=== PATIENT | female | born 1970 | race Caucasian/White ===

== ENCOUNTER 2020-03-16 01:28 | Emergency (ER) | payer MEDICAID ==
[~2020-03-16] VITALS: Ht 170.2 cm; Wt 127.3 kg
[2020-03-16 01:32] VITALS: BP 143/97
[2020-03-16] MEDS ORDERED: HYDR-3965 PO (01:39)
[2020-03-16] MEDS ORDERED: ONDA4TAB6 PO (01:39)
[2020-03-16] MEDS ORDERED: HYDROcodone/acetaminophen 5mg/325mg tablet PO ONE (01:40)
[2020-03-16] MEDS ORDERED: ondansetron 4mg rapidly disintigrating tab PO ONE (01:40)
== END 2020-03-16 03:12 | disposition home or self-care (01) ==
LOC: ER 01:29
DX: R60.0 Localized edema (principal); M79.605 Pain in left leg; M79.604 Pain in right leg; Z79.899 Other long term (current) drug therapy
CPT/HCPCS: 99283

== ENCOUNTER 2020-04-16 05:31 | Emergency (ER) | payer MEDICAID ==
[~2020-04-16 05:31] MED LIST: HYDR-3965 PO; ONDA4TAB6 PO
[2020-04-16] MEDS ORDERED: normal saline 1000ML IV soln IV ONE (05:45)
[2020-04-16] MEDS ORDERED: normal saline 1000ML IV soln IVB ONE (06:00)
[2020-04-16 06:13] LABS: BASOPHILS # (AUTO) 0.1 X10'3 (0-0.2); BASOPHILS % (AUTO) 1.2 % (0-1); EOSINOPHILS # (AUTO) 0.1 X10'3 (0-0.9); EOSINOPHILS % (AUTO) 1.5 % (0-6); HEMATOCRIT 37.7 % (35.0-45.0); HEMOGLOBIN 12.6 g/dl (12.0-16.0); LYMPHOCYTES # (AUTO) 3.4 X10'3 (1.1-4.8); LYMPHOCYTES % (AUTO) 35.6 % (21-51); MEAN CORPUSCULAR HEMOGLOBIN 28.7 PG (27.0-31.0); MEAN CORPUSCULAR HGB CONC 33.5 g/dL (33.0-36.5); MEAN CORPUSCULAR VOLUME 85.6 FL (78-98); MEAN PLATELET VOLUME 9.2 FL (7.4-10.4); MONOCYTES # (AUTO) 0.5 X10'3 (0-0.9); MONOCYTES % (AUTO) 5.5 % (2-12); NEUTROPHILS # (AUTO) 5.3 X10'3 (1.8-7.7); NEUTROPHILS % (AUTO) 56.2 % (42-75); PLATELET COUNT 365 X10'3 (140-440); RED CELL DISTRIBUTION WIDTH 14.1 % (11.5-14.5); WHITE BLOOD COUNT 9.5 X10'3 (4.5-11.0)
[2020-04-16 06:23] LABS: PARTIAL THROMBOPLASTIN TIME 23 SECONDS (22-32)
[2020-04-16 06:24] LABS: ALANINE AMINOTRANSFERASE 35 U/L (12-78); ALBUMIN 4.1 G/DL (3.4-5.0); ALBUMIN/GLOBULIN RATIO 0.9 (1.1-1.5); ALKALINE PHOSPHATASE 136 IU/L (46-116); ANION GAP 11 (8-16); ASPARTATE AMINO TRANSFERASE 18 U/L (10-37); BILIRUBIN,TOTAL 0.2 MG/DL (0.1-1.0); BLOOD UREA NITROGEN 13 MG/DL (7-18); BUN/CREATININE RATIO 14.4 (6.6-38.0); CALCIUM 9.7 MG/DL (8.5-10.1); CHLORIDE 102 MMOL/L (99-107); GLUCOSE 151 MG/DL (70-104); POTASSIUM 3.3 MMOL/L (3.5-5.1); SODIUM 137 MMOL/L (135-145); TOTAL CARBON DIOXIDE 23.8 MMOL/L (24-32); TOTAL PROTEIN 8.8 G/DL (6.4-8.2); eGFR 67 ML/MIN
[2020-04-16 06:40] LABS: URINE HCG NEGATIVE (NEG)
[2020-04-16 06:46] LABS: CLARITY,URINE CLEAR (Clear); COLOR,URINE STRAW (Yellow); GLUCOSE, URINE NEGATIVE (Neg); KETONES,URINE NEGATIVE (Neg); LEUKOCYTE ESTERASE ,URINE NEGATIVE (Neg); NITRITES, URINE NEGATIVE (Neg); OCCULT BLOOD,URINE LARGE (Neg); PROTEIN,URINE NEGATIVE (Neg); UROBILINOGEN,URINE 0.2 E.U/dL (0.2-1.0)
[2020-04-16 06:50] LABS: UA COLLECTION TYPE CLN CATCH MIDSTREAM
[2020-04-16 06:53] LABS: BACTERIA,URINE NONE SEEN /HPF (Neg); RBC,URINE 0-2 /HPF (0-2); SQUAMOUS EPITHELIAL CELL,UR NONE SEEN /LPF (FEW); WBC,URINE NONE SEEN /HPF (0-4)
[2020-04-16] MEDS ORDERED: potassium Cl 20 mEq SR tablet PO ONE (09:05)
[2020-04-16 10:03] VITALS: BP 121/77
== END 2020-04-16 10:05 | disposition home or self-care (01) ==
LOC: ER 05:31
DX: K62.5 Hemorrhage of anus and rectum (principal); R60.0 Localized edema; R10.84 Generalized abdominal pain; R53.1 Weakness; R53.83 Other fatigue; Z86.73 Personal history of transient ischemic attack (TIA), and cerebral infarction without residual deficits; Z88.0 Allergy status to penicillin; Z88.5 Allergy status to narcotic agent; Z79.899 Other long term (current) drug therapy
CPT/HCPCS: 36415; 74176; 80053; 81001; 81025; 82948; 85025; 85610; 85730; 86885; 86900; 86901; 93005; 96360; 96361; 99285; J7030

== ENCOUNTER 2024-06-05 23:06 | Emergency (ER) | payer MEDICAID ==
[~2024-06-05] VITALS: Ht 170.2 cm; Wt 104.9 kg
[~2024-06-05 23:06] MED LIST changes: -HYDR-3965 PO
[2024-06-05] MEDS ORDERED: naproxen sodium 220mg tablet PO STA (23:35)
[2024-06-06] MEDS: naproxen 500mg tablet PO ONE
[2024-06-06 00:01] VITALS: BP 122/80; PULSE 92; RESP 18; TEMP 98.6; O2SAT 99
== END 2024-06-06 00:04 | disposition home or self-care (01) ==
LOC: ER 23:06
DX: M79.601 Pain in right arm (principal); Z88.0 Allergy status to penicillin; Z88.5 Allergy status to narcotic agent; Z86.73 Personal history of transient ischemic attack (TIA), and cerebral infarction without residual deficits; Z79.899 Other long term (current) drug therapy
CPT/HCPCS: 99282

== ENCOUNTER 2024-06-12 22:22 | Inpatient (IN) | payer MEDICAID ==
[~2024-06-12] VITALS: Ht 170.2 cm; Wt 150.0 kg
[2024-06-12] MEDS: aspirin 81mg tab.chew PO ONE (23:35)
[2024-06-12 23:47] LABS: D-DIMER 0.58 MG/L FEU (0-0.50)
[2024-06-12 23:49] LABS: BASOPHILS # (AUTO) 0.1 X10'3 (0-0.2); EOSINOPHILS # (AUTO) 0.1 X10'3 (0-0.9); HEMATOCRIT 39.5 % (35.0-45.0); HEMOGLOBIN 13.3 g/dl (12.0-16.0); LYMPHOCYTES # (AUTO) 3.1 X10'3 (1.1-4.8); LYMPHOCYTES % (AUTO) 31.8 % (21-51); MEAN CORPUSCULAR HEMOGLOBIN 30.3 PG (27.0-31.0); MEAN CORPUSCULAR HGB CONC 33.7 g/dL (33.0-36.5); MEAN CORPUSCULAR VOLUME 89.9 FL (78-98); MEAN PLATELET VOLUME 10.5 FL (7.4-10.4); MONOCYTES # (AUTO) 0.5 X10'3 (0-0.9); MONOCYTES % (AUTO) 5.4 % (2-12); NEUTROPHILS % (AUTO) 60.8 % (42-75); PLATELET COUNT 252 X10'3 (140-440); RED BLOOD COUNT 4.39 X10'6 (4.20-5.60); RED CELL DISTRIBUTION WIDTH 13.8 % (11.5-14.5); WHITE BLOOD COUNT 9.8 X10'3 (4.5-11.0)
[2024-06-12 23:50] LABS: ALANINE AMINOTRANSFERASE 38 U/L (12-78); ALBUMIN 3.8 G/DL (3.4-5.0); ALBUMIN/GLOBULIN RATIO 0.9 (1.1-1.5); ALKALINE PHOSPHATASE 125 IU/L (46-116); ANION GAP 14 (8-16); ASPARTATE AMINO TRANSFERASE 18 U/L (10-37); BILIRUBIN,TOTAL 0.4 MG/DL (0.1-1.0); BLOOD UREA NITROGEN 14 MG/DL (7-18); BUN/CREATININE RATIO 21.2 (10.0-20.0); CALCIUM 9.4 MG/DL (8.5-10.1); CHLORIDE 104 MMOL/L (99-107); CREATININE 0.66 MG/DL (0.40-0.90); GLUCOSE 273 MG/DL (70-104); POTASSIUM 4.3 MMOL/L (3.5-5.1); SODIUM 141 MMOL/L (135-145); TOTAL CARBON DIOXIDE 23.1 MMOL/L (24-32); TOTAL PROTEIN 7.9 G/DL (6.4-8.2); eCRCL 97 ML/MIN; eGFR > 90 ML/MIN
[2024-06-12 23:52] LABS: APTT 23 SECONDS (22-32); PROTHROMBIN TIME 10.2 SECONDS (9.0-12.0)
[2024-06-12 23:56] LABS: MAGNESIUM 1.9 MG/DL (1.5-2.4); PRO BRAIN NATRIURETIC PEPTIDE 340 PG/ML (0-125)
[2024-06-13] VITALS (10 sets, daily range): BP systolic 108–131; BP diastolic 77–86; PULSE 90–108; RESP 14–16; TEMP 98.2; O2SAT 96–100
[2024-06-13 00:59] LABS: BILIRUBIN,URINE NEGATIVE (Neg); CLARITY,URINE CLEAR (Clear); COLOR,URINE YELLOW (Yellow); GLUCOSE, URINE >=1000 mg/dl (Neg); KETONES,URINE 40 mg/dl (Neg); LEUKOCYTE ESTERASE ,URINE NEGATIVE (Neg); NITRITES, URINE NEGATIVE (Neg); OCCULT BLOOD,URINE NEGATIVE (Neg); PROTEIN,URINE NEGATIVE (Neg); UROBILINOGEN,URINE 0.2 E.U/dL (0.2-1.0)
[2024-06-13 01:02] LABS: UA COLLECTION TYPE CLN CATCH MIDSTREAM
[2024-06-13 01:05] LABS: BACTERIA,URINE 1+ /HPF (Neg); RBC,URINE NONE SEEN /HPF (0-2); SQUAMOUS EPITHELIAL CELL,UR FEW /LPF (FEW); WBC,URINE 0-4 /HPF (0-4)
[2024-06-13] MEDS ORDERED: iohexol 350MG/ML 100ml bottle IV ONE (01:17)
[2024-06-13] MEDS: normal saline 1000ml 1,000 ML IV ONE (01:32)
[2024-06-13] MEDS ORDERED: magnesium hydroxide 30ml (MOM) UD suspension PO PRN (04:30)
[2024-06-13] MEDS ORDERED: potassium Cl 20 mEq SR tablet PO PRN ×2 (04:30)
[2024-06-13] MEDS ORDERED: potassium Cl 40MEQ/1/2NS 520ml 520 ML IV PRN (04:30)
[2024-06-13] MEDS ORDERED: magnesium sulf-water 4G/100mL 100 ML IV PRN (04:30)
[2024-06-13] MEDS ORDERED: magnesium sulf-water 2g/50mL 50 ML IV PRN (04:30)
[2024-06-13] MEDS ORDERED: mag hydrox/Alum hydrox/simeth 30ml oral suspension PO PRN (04:30)
[2024-06-13] MEDS ORDERED: acetaminophen 325mg tablet PO PRN (04:30)
[2024-06-13] MEDS ORDERED: ondansetron/PF 4mg/2ml inj IV PRN (04:30)
[2024-06-13] MEDS ORDERED: magnesium Cl slow-release 64mg tablet PO PRN (04:30)
[2024-06-13] MEDS ORDERED: nitroGLYCERIN 0.4mg SUBLingual tab SL PRN ×2 (05:15→05:20)
[2024-06-13] MEDS ORDERED: dextrose 50%-water 50ml dispensing syringe IV PRN ×4 (05:20→12:15)
[2024-06-13] MEDS ORDERED: DEXTROSE 15 GM of carb/4 tabs (each vial/BOTTLE has 4 tablets) PO PRN ×4 (05:20→12:15)
[2024-06-13] MEDS ORDERED: aminophylline 250mg/10ml inj. IV PRN (05:20)
[2024-06-13] MEDS ORDERED: metoprolol tartrate 1mg/ml inj IV PRN (05:20)
[2024-06-13] MEDS ORDERED: glucagon, human recombinant 1mg kit SUBCUT PRN ×2 (05:20→12:15)
[2024-06-13] MEDS: normal saline 1000ml 1,000 ML IV SCH (05:21)
[2024-06-13] MEDS: INSULIN LISPRO 100 UNIT/ML INSULN.PEN MULTI-DOSE SQ SCH (06:50)
[2024-06-13] MEDS: atorvastatin 20mg tablet PO SCH (07:55)
[2024-06-13] MEDS: K and/or MAG REPLACEMENT MC SCH (07:55)
[2024-06-13] MEDS: aspirin 81mg, enteric-coated 1 TAB TABLET.DR PO SCH (07:55)
[2024-06-13] MEDS: docusate sod 100mg capsule PO SCH (07:55)
[2024-06-13] MEDS: furosemide 10 MG/1 ML 10ml inj IV SCH (07:55)
[2024-06-13] MEDS: carvedilol 6.25mg tablet PO SCH (07:55)
[2024-06-13] MEDS: heparin, porcine 5000 units/ml vial SQ SCH (07:56)
[2024-06-13 08:10] LABS: CHOL/HDL RATIO 4.5 (0.00-4.99); CHOLESTEROL 147 MG/DL (0-200); HDL CHOLESTEROL 33 MG/DL (35-60); LDL CHOLESTEROL 83 MG/DL (50-100); MAGNESIUM 1.8 MG/DL (1.5-2.4); TRIGLYCERIDES 216 MG/DL (20-135)
[2024-06-13] MEDS: regadenoson 0.4mg/5ml syringe IV PRN (09:26)
[2024-06-13 11:02] LABS: HEMOGLOBIN A1C 10.7 % (4.5-6.2)
[2024-06-13] MEDS ORDERED: furosemide 20 MG/2 ML vial IV SCH (12:24)
[2024-06-13] MEDS ORDERED: FURO20TA4 PO (13:13)
[2024-06-13] MEDS ORDERED: EMPA10TA PO (13:13)
[2024-06-13] MEDS ORDERED: ATOR-2 PO (13:14)
[2024-06-13] MEDS ORDERED: CARV-50 PO (13:14)
[2024-06-13] MEDS ORDERED: ASPI-1397 PO (13:14)
[2024-06-13] MEDS ORDERED: CLOP75TA34 PO (13:14)
[2024-06-13] MEDS ORDERED: SPIR25TA5 PO (13:14)
[2024-06-13] MEDS ORDERED: SITA100T15 PO (13:14)
[2024-06-13] MEDS ORDERED: ALBU10.7 PO (13:14)
[2024-06-13] MEDS ORDERED: LANTUS SQ (13:14)
[2024-06-13] MEDS ORDERED: LISI20TA28 PO (13:14)
[2024-06-13] MEDS ORDERED: DULA0.75 SQ (13:14)
[2024-06-13] MEDS ORDERED: INSULIN LISPRO 100 UNIT/ML INSULN.PEN MULTI-DOSE SQ SCH (17:00)
[2024-06-13] MEDS ORDERED: insulin glargine (Lantus) pen - multi-dose SQ SCH ×2 (21:00)
== END 2024-06-13 17:31 | disposition home or self-care (01) | DRG 194 ==
LOC: ER 22:23 → ED HOLD 06-13 04:29
PROVIDERS: ADMIT Internal Medicine Critical Care Medicine; ATTEND Family Medicine
PROC: 4A02XM4 Measurement of Cardiac Total Activity, External Approach (ICD-10-PCS; principal; 2024-06-13)
PROC: 3E033HZ Introduction of Radioactive Substance into Peripheral Vein, Percutaneous Approach (ICD-10-PCS; 2024-06-13)
PROC: B32T1ZZ Computerized Tomography (CT Scan) of Left Pulmonary Artery using Low Osmolar Contrast (ICD-10-PCS; 2024-06-13)
PROC: B3201ZZ Computerized Tomography (CT Scan) of Thoracic Aorta using Low Osmolar Contrast (ICD-10-PCS; 2024-06-13)
PROC: B32S1ZZ Computerized Tomography (CT Scan) of Right Pulmonary Artery using Low Osmolar Contrast (ICD-10-PCS; 2024-06-13)
DX: I11.0 Hypertensive heart disease with heart failure (principal); I21.A1 Myocardial infarction type 2; I50.21 Acute systolic (congestive) heart failure; J45.909 Unspecified asthma, uncomplicated; I69.351 Hemiplegia and hemiparesis following cerebral infarction affecting right dominant side; Z88.0 Allergy status to penicillin; Z88.5 Allergy status to narcotic agent
CPT/HCPCS: 36415; 71045; 71275; 73521; 78452; 80053; 80061; 81001; 82948; 83036; 83605; 83735; 83880; 84132; 84145; 84484; 85025; 85379; 85610; 85730; 87040; 87502; 87503; 93005; 93017; 93306; 97161; 97530; 99285; A9500; G0378; J1815; J1940; J2785; J7030; Q9967

== ENCOUNTER 2024-08-05 00:04 | Inpatient (IN) | payer MEDICAID ==
[2024-08-05] VITALS (7 sets, daily range): BP systolic 80–120; BP diastolic 45–70; PULSE 75–106; RESP 12–23; TEMP 97–98.2; O2SAT 95–98
[~2024-08-05] VITALS: Ht 170.2 cm; Wt 109.0 kg
[~2024-08-05 00:04] MED LIST changes: +ALBU10.7 PO; +ASPI-1397 PO; +ATOR-2 PO; +CARV-50 PO; +CLOP75TA34 PO; +DULA0.75 SQ; +EMPA10TA PO; +FURO20TA4 PO; +LANTUS SQ; +LISI20TA28 PO; +SITA100T15 PO; +SPIR25TA5 PO
[2024-08-05 01:45] LABS: BASOPHILS # (AUTO) 0.1 X10'3 (0-0.2); BASOPHILS % (AUTO) 0.7 % (0-1); EOSINOPHILS # (AUTO) 0.2 X10'3 (0-0.9); EOSINOPHILS % (AUTO) 2.7 % (0-6); HEMATOCRIT 31.8 % (35.0-45.0); HEMOGLOBIN 10.6 g/dl (12.0-16.0); LYMPHOCYTES % (AUTO) 36.3 % (21-51); MEAN CORPUSCULAR HEMOGLOBIN 27.8 PG (27.0-31.0); MEAN CORPUSCULAR HGB CONC 33.3 g/dL (33.0-36.5); MEAN CORPUSCULAR VOLUME 83.5 FL (78-98); MONOCYTES # (AUTO) 0.5 X10'3 (0-0.9); MONOCYTES % (AUTO) 5.9 % (2-12); NEUTROPHILS # (AUTO) 4.6 X10'3 (1.8-7.7); NEUTROPHILS % (AUTO) 54.4 % (42-75); PLATELET COUNT 282 X10'3 (140-440); RED BLOOD COUNT 3.81 X10'6 (4.20-5.60); RED CELL DISTRIBUTION WIDTH 14.7 % (11.5-14.5); WHITE BLOOD COUNT 8.4 X10'3 (4.5-11.0)
[2024-08-05 01:59] LABS: ALBUMIN 3.2 G/DL (3.4-5.0); ANION GAP 11 (8-16); BLOOD UREA NITROGEN 15 MG/DL (7-18); BUN/CREATININE RATIO 30.6 (10.0-20.0); CALCIUM 8.5 MG/DL (8.5-10.1); CHLORIDE 107 MMOL/L (99-107); CREATININE 0.49 MG/DL (0.40-0.90); GLUCOSE 163 MG/DL (70-104); POTASSIUM 3.9 MMOL/L (3.5-5.1); PRO BRAIN NATRIURETIC PEPTIDE 230 PG/ML (0-125); SODIUM 142 MMOL/L (135-145); eCRCL 131 ML/MIN; eGFR > 90 ML/MIN
[2024-08-05] MEDS: diazepam inj 5 MG/ML inj. IV ONE (02:38)
[2024-08-05] MEDS: oxyCODONE IR 5mg (immed. release) tablet PO ONE (04:57)
[2024-08-05] MEDS ORDERED: heparin 10,000 units/1 ML INJ IV PRN (05:05)
[2024-08-05] MEDS: heparin 10,000 units/1 ML INJ IV ONE (05:24)
[2024-08-05] MEDS: heparin 25,000 UNIT/250ml bag 250 ML IV PRN (05:25)
[2024-08-05] MEDS: aspirin 81mg tab.chew PO ONE (05:25)
[2024-08-05] MEDS: MESSAGE TO NURSING IV ONE (05:29)
[2024-08-05] MEDS ORDERED: magnesium hydroxide 30ml (MOM) UD suspension PO PRN (05:30)
[2024-08-05] MEDS ORDERED: potassium Cl 40MEQ/1/2NS 520ml 520 ML IV PRN (05:30)
[2024-08-05] MEDS ORDERED: acetaminophen 325mg tablet PO PRN (05:30)
[2024-08-05] MEDS ORDERED: magnesium sulf-water 4G/100mL 100 ML IV PRN (05:30)
[2024-08-05] MEDS ORDERED: magnesium sulf-water 2g/50mL 50 ML IV PRN (05:30)
[2024-08-05] MEDS ORDERED: potassium Cl 20 mEq SR tablet PO PRN ×2 (05:30)
[2024-08-05] MEDS ORDERED: mag hydrox/Alum hydrox/simeth 30ml oral suspension PO PRN (05:30)
[2024-08-05] MEDS ORDERED: magnesium Cl slow-release 64mg tablet PO PRN (05:30)
[2024-08-05] MEDS: DULAGLUTIDE 0.75 MG/0.5 ML SQ SCH (05:35)
[2024-08-05] MEDS ORDERED: albuterol 2.5 MG/3 ML nebule NEB PRN (05:35)
[2024-08-05 06:10] LABS: APTT 46 SECONDS (22-32); INR 1.1 INR; PROTHROMBIN TIME 10.9 SECONDS (9.0-12.0)
[2024-08-05] MEDS: vancomycin/NS 1 GM ADD-VANTAGE 250 ML IV SCH (06:19)
[2024-08-05 06:56] LABS: MAGNESIUM 1.9 MG/DL (1.5-2.4); POTASSIUM 3.9 MMOL/L (3.5-5.1)
[2024-08-05] MEDS: K and/or MAG REPLACEMENT MC SCH (08:00)
[2024-08-05] MEDS: aspirin 81mg, enteric-coated 1 TAB TABLET.DR PO SCH (09:48)
[2024-08-05] MEDS: docusate sod 100mg capsule PO SCH (09:49)
[2024-08-05] MEDS: furosemide 20MG tablet PO SCH (09:49)
[2024-08-05] MEDS: atorvastatin 20mg tablet PO SCH (09:49)
[2024-08-05] MEDS: lisinopril 20mg tablet PO SCH (09:50)
[2024-08-05] MEDS: clopidogrel 75mg tablet PO SCH (09:50)
[2024-08-05] MEDS: EMPAGLIFLOZIN 10 MG TABLET PO SCH (09:51)
[2024-08-05] MEDS: carVEDilol 12.5mg tablet PO SCH (09:51)
[2024-08-05] MEDS: ondansetron/PF 4mg/2ml inj IV PRN (11:54)
[2024-08-05] MEDS ORDERED: DEXTROSE 15 GM of carb/4 tabs (each vial/BOTTLE has 4 tablets) PO PRN ×2 (12:30)
[2024-08-05] MEDS ORDERED: dextrose 50%-water 50ml dispensing syringe IV PRN ×2 (12:30)
[2024-08-05] MEDS ORDERED: glucagon, human recombinant 1mg kit SUBCUT PRN (12:30)
[2024-08-05 12:49] LABS: HEMOGLOBIN A1C 7.8 % (4.5-6.2)
[2024-08-05 12:57] LABS: THYROID STIMULATING HORMONE 3.19 ulU/ml (0.34-4.50)
[2024-08-05] MEDS: spironolactone 25 MG tablet PO SCH (14:16)
[2024-08-05] MEDS: oxyCODONE/APAP 5-325mg tablet PO PRN (14:20)
[2024-08-05] MEDS: INSULIN LISPRO 100 UNIT/ML INSULN.PEN MULTI-DOSE SQ SCH (17:46)
[2024-08-05] MEDS: lactobacillus rhamnosus 10,000 MMU CELLS/CAPSULE PO SCH (20:37)
[2024-08-05] MEDS: heparin, porcine 5000 units/ml vial SQ SCH (20:38)
[2024-08-05] MEDS: insulin glargine (Lantus) pen - multi-dose SQ SCH (20:50)
[2024-08-06 02:00] VITALS: BP 94/52; PULSE 93; RESP 16; TEMP 97.7; O2SAT 95
[2024-08-06] MEDS: VANCOMYCIN LEVEL IV ONE (06:23)
[2024-08-06 07:00] VITALS: BP 124/79; PULSE 93; RESP 13; TEMP 97.6; O2SAT 98
[2024-08-06] MEDS: LIDOcaine 5% patch TP SCH (07:17)
[2024-08-06 07:43] LABS: ALANINE AMINOTRANSFERASE 22 U/L (12-78); ALBUMIN 2.9 G/DL (3.4-5.0); ALBUMIN/GLOBULIN RATIO 0.7 (1.1-1.5); ALKALINE PHOSPHATASE 132 IU/L (46-116); ANION GAP 10 (8-16); ASPARTATE AMINO TRANSFERASE 12 U/L (10-37); BILIRUBIN,TOTAL 0.4 MG/DL (0.1-1.0); BLOOD UREA NITROGEN 12 MG/DL (7-18); BUN/CREATININE RATIO 22.6 (10.0-20.0); CALCIUM 8.6 MG/DL (8.5-10.1); CHLORIDE 106 MMOL/L (99-107); CREATININE 0.53 MG/DL (0.40-0.90); GLUCOSE 165 MG/DL (70-104); MAGNESIUM 1.9 MG/DL (1.5-2.4); SODIUM 138 MMOL/L (135-145); TOTAL CARBON DIOXIDE 21.7 MMOL/L (24-32); TOTAL PROTEIN 6.8 G/DL (6.4-8.2); eCRCL 121 ML/MIN; eGFR > 90 ML/MIN
[2024-08-06 08:12] LABS: BASOPHILS # (AUTO) 0.1 X10'3 (0-0.2); BASOPHILS % (AUTO) 0.8 % (0-1); EOSINOPHILS # (AUTO) 0.2 X10'3 (0-0.9); HEMATOCRIT 33.7 % (35.0-45.0); HEMOGLOBIN 10.9 g/dl (12.0-16.0); LYMPHOCYTES # (AUTO) 2.6 X10'3 (1.1-4.8); LYMPHOCYTES % (AUTO) 32.8 % (21-51); MEAN CORPUSCULAR HEMOGLOBIN 27.2 PG (27.0-31.0); MEAN CORPUSCULAR HGB CONC 32.3 g/dL (33.0-36.5); MEAN CORPUSCULAR VOLUME 84.1 FL (78-98); MEAN PLATELET VOLUME 8.4 FL (7.4-10.4); MONOCYTES # (AUTO) 0.4 X10'3 (0-0.9); MONOCYTES % (AUTO) 5.6 % (2-12); NEUTROPHILS # (AUTO) 4.7 X10'3 (1.8-7.7); NEUTROPHILS % (AUTO) 58.8 % (42-75); PLATELET COUNT 303 X10'3 (140-440); RED BLOOD COUNT 4.01 X10'6 (4.20-5.60); RED CELL DISTRIBUTION WIDTH 14.8 % (11.5-14.5)
[2024-08-06 11:13] VITALS: BP 102/53; PULSE 93; RESP 15; TEMP 97.8; O2SAT 98
[2024-08-06] MEDS ORDERED: VANCOMYCIN/WATER FOR INJ (PEG) 1.5GM/300 ML IVPB IV SCH (14:00)
[2024-08-06] MEDS: VANCOmycin 1250MG/NS 250ml Bag 250 ML IV SCH (14:00)
[2024-08-06 14:32] VITALS: RESP 16
[2024-08-07] MEDS ORDERED: VANCOMYCIN LEVEL IV ONE (13:30)
== END 2024-08-06 14:45 | disposition home health service (06) | DRG 383 ==
LOC: ER 00:05 → ED HOLD 05:33 → PCU 3S 08:00
PROVIDERS: ADMIT Internal Medicine; ATTEND Family Medicine
DX: L03.313 Cellulitis of chest wall (principal); I21.A1 Myocardial infarction type 2; I50.9 Heart failure, unspecified; E11.9 Type 2 diabetes mellitus without complications; F32.A Depression, unspecified; R07.89 Other chest pain; I25.10 Atherosclerotic heart disease of native coronary artery without angina pectoris; J45.909 Unspecified asthma, uncomplicated; Z79.82 Long term (current) use of aspirin; Z95.1 Presence of aortocoronary bypass graft; Z79.01 Long term (current) use of anticoagulants; Z79.899 Other long term (current) drug therapy; Z88.5 Allergy status to narcotic agent; Z88.0 Allergy status to penicillin; Z86.73 Personal history of transient ischemic attack (TIA), and cerebral infarction without residual deficits
CPT/HCPCS: 36415; 71045; 71250; 80048; 80053; 80202; 82948; 83036; 83605; 83735; 83880; 84132; 84145; 84443; 84484; 85025; 85610; 85651; 85730; 93005; 96374; 96375; 97116; 97162; 97530; 99291; G0378; J1644; J1815; J2405; J3360; J3370; J7040

== ENCOUNTER 2024-09-30 04:44 | Emergency (ER) | payer MEDICAID ==
[~2024-09-30] VITALS: Ht 170.2 cm; Wt 98.0 kg
--- NOTE | 2024-09-30 05:11 | ELECTROCARDIOGRAPH REPORT ---
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 David Mack Measurements Intervals [place] Rate: 95 P: 84 [place]: 152 QRS: 79 QRSD: 85 T: 154 QT: 385 QTc: 484 Interpretive Statements Sinus rhythm Consider anterior infarct Abnrm T, consider ischemia, anterolateral lds Baseline wander in lead(s) II Electronically Signed On 10-08-2024 17:58:[address] David Mack Please click the below link to view image of tracing.
[2024-09-30 05:26] LABS: BASOPHILS % (AUTO) 0.4 % (0-1); EOSINOPHILS # (AUTO) 0.1 X10'3 (0-0.9); EOSINOPHILS % (AUTO) 1.2 % (0-6); HEMATOCRIT 36.3 % (35.0-45.0); LYMPHOCYTES # (AUTO) 2.8 X10'3 (1.1-4.8); LYMPHOCYTES % (AUTO) 33.9 % (21-51); MEAN CORPUSCULAR HEMOGLOBIN 26.4 PG (27.0-31.0); MEAN PLATELET VOLUME 9.7 FL (7.4-10.4); MONOCYTES # (AUTO) 0.4 X10'3 (0-0.9); MONOCYTES % (AUTO) 5.2 % (2-12); NEUTROPHILS # (AUTO) 4.9 X10'3 (1.8-7.7); NEUTROPHILS % (AUTO) 59.3 % (42-75); PLATELET COUNT 244 X10'3 (140-440); RED BLOOD COUNT 4.53 X10'6 (4.20-5.60); RED CELL DISTRIBUTION WIDTH 16.7 % (11.5-14.5); WHITE BLOOD COUNT 8.3 X10'3 (4.5-11.0)
[2024-09-30] MEDS ORDERED: cefepime 2g/NS 100ml ADVANTAGE 100 ML IV SCH (05:30)
[2024-09-30] MEDS ORDERED: iohexol 300mg/ml 100ml inj. ONE (05:39)
--- NOTE | 2024-09-30 05:43 | Physician Documentation ---
History of Present Illness ~ Chief Complaint: Chest Pain Stated Complaint: SOB Time Seen by MD: 05:06 Primary Medical Doctor: Maggie Patino Source: patient, EMS, EMS notes reviewed Mode of Arrival: EMS Exam Limitations: no limitations HPI Chief Complaint: Sharp right-sided chest pain, HOWEVER THE PATIENT'S ISSUE IS NOT HER SHARP RIGHT-SIDED CHEST PAIN BUT THE LARGE ABSCESS OVER HER RIGHT FACE. Caveat: POOR HISTORIAN Independent Historians: PARAMEDICS History of Present Illness: Patient is a 54-year-old woman that called the ambulance this morning because of sharp right-sided chest pain that she has had for at least two months ever since she got home from rehab after her CABG. Patient has been having this chest pain for a couple of months. Patient denies any shortness of breath. Patient denies any fever. Patient was seen at [facility] within the last week for an infection over her right face. She believes she was bitten by a black spider because she found it close to her in her bedroom. Patient has had facial pain and swelling that began she states Tuesday or Tuesday. She was started on an antibiotic from [facility] but she does not know what antibiotic. Patient's pain and swelling in the right face has gotten progressively worse and she is now pain radiating into the forehead and right ear. Patient's swelling has gotten worse to a point where her right eye is almost swollen shut. Review of systems: All systems were reviewed and are negative except for what is indicated in the history of present illness. Past Medical History: Hypertension, hyperlipidemia, type 2 diabetes, coronary artery disease Past Surgical History: CABG x1 June 2024 (at [facility]). Social History: Medications: Reviewed as documented Nursing Notes Allergies: Reviewed as documented in Nursing Notes Tetanus Within 5 Years: No (declined to answer) Medication Reconciliation Allergies: Coded Allergies: Penicillins (Verified Allergy, Severe, HIVES, 09/30/24) morphine (Verified Allergy, Intermediate, TURNED HER ARM BLUE, 09/30/24) Scheduled Aspirin (Aspirin EC), 1 TAB PO DAILY, (Reported) Atorvastatin Calcium (Atorvastatin Calcium), 1 TAB PO DAILY, (Reported) Carvedilol (Carvedilol), 1 TAB PO DAILY, (Reported) Clopidogrel Bisulfate (Clopidogrel), 1 TAB PO DAILY, (Reported) Dulaglutide (Trulicity), 0.75 MG SQ Q7D, (Reported) Empagliflozin (Jardiance), 1 TAB PO DAILY, (Reported) Furosemide (Furosemide), 1 TAB PO DAILY, (Reported) Lisinopril (Lisinopril), 1 TAB PO DAILY, (Reported) Ondansetron Hcl (Zofran), 1 TAB PO Q6H Sitagliptin Phosphate* (Januvia*), 1 TAB PO DAILY, (Reported) Spironolactone (Spironolactone), 0.5 TAB PO DAILY, (Reported) Scheduled PRN Albuterol Sulfate/Budesonide (Airsupra 90-80 Mcg Inhaler), 2 PUFF PO Q4H PRN for SOB or wheezing, (Reported) Miscellaneous Medications Insulin Glargine,Hum.rec.anlog* (Lantus*), Unknown Dose SQ, (Reported) Past Medical History Past Medical History: CVA/TIA/Stroke Past Surgical History: noncontributory Alcohol Use: Rarely Drug Use: none Lives In: Home Occupation: employed Review of Systems All Other Systems at this time: Reviewed and Negative ROS Patient denies any other acute symptoms other than above. All other systems are negative Physical Exam Vital Signs: RN Vital Signs have been reviewed: Yes, Temperature: 98.4, Source: Oral, Heart Rate: 100, Respiratory Rate: 16, BP: 139/97, Pulse Oximetry: 98, Weight: 98.000 Oxygen Flow Rate: 0 Pulse Oximetry Reflects: adequate oxygenation Physical Exam General Appearance: Moderate distress, acutely ill-appearing, chronically ill- appearing, morbidly obese HEENT: Normal OP, moist oral mucosa, PERRL, EOMI, large fluctuant abscess over the right upper cheek that involves the right medial canthus right side of the nose and below the eye. The eye is almost swollen shut. There is some discharge from the eye. Neck: supple, normal ROM, trachea midline Pulmonary: No respiratory distress, CTA, BS equal Cardiac: RRR, no murmur, rub or gallop, GI: nondistended, soft, nontender, normal bowel sounds, no guarding, no rebound Extremities: normal ROM, no swelling, non-tender Skin: intact, dry, warm, no rashes Neuro: AAOx3, speech is clear, no focal motor weakness Psych: normal affect, good eye contact, no apparent hallucination, normal speech Progress Results/Orders Results/Orders Orders - ANALI ARROYO MD Monitor (09/30/24 05:04) Saline Lock (09/30/24 05:04) Oxygen (09/30/24 05:04) Electrocardiogram (09/30/24 05:30) Culture Blood (09/30/24 05:30) Chest,Single View (09/30/24 05:30) Straight Cath For Urine Sample (09/30/24 05:30) Ct Facial Bones/Soft Tissue (09/30/24 05:34) Completed Orders - ANALI ARROYO MD Cbc/Diff (09/30/24 05:04) BMP (09/30/24 05:04) PBNP (09/30/24 05:04) Electrocardiogram (09/30/24 05:04) Hs Troponin I W Calculations (09/30/24 05:04) Hs Troponin I W Calculations (09/30/24 07:04) Hs Troponin I W Calculations (09/30/24 08:04) Chest,Single View (09/30/24 05:30) Hcg, Ur Ql (09/30/24 05:30) Procalcitonin (09/30/24 05:30) Vancomycin/Ns 1 Gm Add-[place] (Vancomyc (09/30/24 05:30) Cefepime 2g/Ns 100ml Advantage (Maxipime (09/30/24 05:30) Lacticsepsis (09/30/24 05:30) Ct Facial Bones/Soft Tissue (09/30/24 05:34) MG (09/30/24 05:00) Iohexol 300mg/Ml 100ml Inj. (Omnipaque-3 (09/30/24 05:39) Cefepime 2gm In D5w 50ml (Cefepime-D5w 2 (09/30/24 05:56) Lactic,2hr (09/30/24 08:40) Ua W/Microscopic, Cult If Ind (09/30/24 07:16) Medications Received in ER Medications (Trade) Dose Ordered Sig/Alberto Route PRN Reason Start Time Stop Time Status Last Admin Dose Admin (Dilaudid inj.) 0.5 mg Q4H PRN IV pain 09/30/24 12:10 09/30/24 16:52 DC 09/30/24 15:04 0.5 MG Sodium Chloride 1,000 ml @ 100 mls/hr Q10H IV 09/30/24 12:10 09/30/24 16:52 DC 09/30/24 12:10 100 MLS/HR Vital Signs 09/30/24 09/30/24 09/30/24 09/30/24 04:50 05:06 06:30 07:00 Temp 98.4 Pulse 100 95 97 Resp 18 16 16 14 B/P (MAP) 139/97 141/86 (104) 142/85 (104) Pulse Ox 98 99 97 O2 Flow Rate 0 0 0 09/30/24 09/30/24 09/30/24 09/30/24 07:30 07:36 07:43 08:00 Temp 98.2 Pulse 91 97 80 Resp 14 18 15 B/P (MAP) 141/81 (101) 148/86 (106) 143/88 (106) Pulse Ox 98 97 97 97 O2 Delivery Room Air* O2 Flow Rate 0 0 0 0 FiO2 N/A 09/30/24 09/30/24 09/30/24 09/30/24 08:30 09:25 10:00 10:30 Pulse 95 83 88 76 Resp 18 15 19 20 B/P (MAP) 151/89 (109) 137/94 (108) 148/85 (106) 144/86 (105) Pulse Ox 99 99 99 98 O2 Flow Rate 0 0 0 0 09/30/24 09/30/24 09/30/24 09/30/24 11:00 11:30 12:00 12:30 Pulse 75 82 103 90 Resp 14 14 16 16 B/P (MAP) 146/94 (111) 140/91 (107) 152/89 (110) 128/78 (95) Pulse Ox 99 99 92 96 O2 Flow Rate 0 0 0 0 09/30/24 09/30/24 09/30/24 14:13 15:04 16:36 Temp 98.2 Pulse 88 86 Resp 14 18 16 B/P (MAP) 149/89 (109) 125/72 Pulse Ox 98 98 O2 Flow Rate 0 Laboratory Tests Test 09/30/24 05:00 09/30/24 07:02 09/30/24 07:16 09/30/24 07:59 White Blood Count 8.3 Red Blood Count 4.53 Hemoglobin 12.0 Hematocrit 36.3 Mean Corpuscular Volume 80.0 Mean Corpuscular Hemoglobin 26.4 L Mean Corpuscular Hemoglobin Concent 33.0 Red Cell Distribution Width 16.7 H Platelet Count 244 Mean Platelet Volume 9.7 Neutrophils (%) (Auto) 59.3 Lymphocytes (%) (Auto) 33.9 Monocytes (%) (Auto) 5.2 Eosinophils (%) (Auto) 1.2 Basophils (%) (Auto) 0.4 Neutrophils # (Auto) 4.9 Lymphocytes # (Auto) 2.8 Monocytes # (Auto) 0.4 Eosinophils # (Auto) 0.1 Basophils # (Auto) 0.0 CBC Comment Sodium Level 137 Potassium Level 4.1 Chloride Level 102 Carbon Dioxide Level 24.1 Anion Gap 11 Blood Urea Nitrogen 9 Creatinine 0.77 Estimated GFR/1.73 m2 79 BUN/Creatinine Ratio 11.7 Glucose Level 440 *H Calcium Level 9.2 Magnesium Level 1.7 Troponin I High Sensitivity 98 *H 105 *H 99 *H Pro-B-Type Natriuretic Peptide 434 H Albumin 3.2 L Procalcitonin < 0.05 Chemistry Comments Lactic Acid Level 2.2 H Troponin I High Sens Percent Delta 7 5 Troponin I Hi Sens Absolute Change 7 -6 C-Reactive Protein 1.38 H Urine Specimen Description Cln catch midstream Urine Color Yellow Urine Clarity Clear Urine pH 6.0 Urine Specific [place] 1.010 Urine Protein Negative Urine Glucose (UA) >=1000 H Urine Ketones Negative Urine Occult Blood Negative Urine Nitrite Negative Urine Bilirubin Negative Urine Urobilinogen 0.2 Urine Leukocyte Esterase Negative Urine RBC 0-2 Urine WBC 0-4 Urine Squamous Epithelial Cells None seen Urine Bacteria None seen Urine Mucus None seen Urine Culture Indicated Not ind Volume Urine Centrifuged 10 ml Urine HCG, Qualitative Negative Urine Comment Test 09/30/24 08:05 09/30/24 09:00 09/30/24 12:10 09/30/24 13:10 Glucometer 353 H 315 H Lactic Acid Level 1.6 Sodium Level 140 Potassium Level 4.1 Chloride Level 103 Carbon Dioxide Level 28.7 Anion Gap 8 Blood Urea Nitrogen 7 Creatinine 0.65 Estimated GFR/1.73 m2 > 90 BUN/Creatinine Ratio 10.8 Glucose Level 334 H Calcium Level 8.9 Albumin 2.8 L Chemistry Comments Microbiology Date/Time Source Procedure Growth Status 09/30/24 07:59 Blood Arm Right Blood Culture - Preliminary NEGATIVE (LESS THAN 24 HOURS) Resulted Medical Decision Making Findings Differential diagnosis includes but is not limited to: Sepsis, facial abscess, periorbital cellulitis, periorbital abscess, preseptal cellulitis EKG independent interpretation: Performed at 5:09 a.m.. Normal sinus rhythm, heart rate 95, normal axis, flipped T-waves in one, aVL and V2 Chest x-ray, single view, indication: Independent interpretation: Laboratory data independent interpretation: CBC: CMP: Toxicology: Serology: Urinalysis: Emergency department course/medical decision-making: Patient presents with sharp right-sided chest pain. I do not suspect a pulmonary embolus. Patient has had this pain ongoing for two months. The patient is medical emergency here is the abscess to her right face. Patient has failed outpatient antibiotics and will be receiving IV cefepime and IV vancomycin. CT of the face with IV contrast is pending. Consultation/communications: Care the patient is transferred to Dr. Hayes has 6:00 a.m.. The patient is a poor historian. She has fluctuant abscess involving the right medial canthus and right nasal sidewall. There is a small area (3-5 mm) of excoriation. There is no apparent involvement of the eyeball. She reports that this began four days ago when she went to [facility] in [place] and was started on and (unknown) antibiotic but her symptoms have progressed. She was recently staying at the [facility] but was evicted in his currently living in her truck. She has not been taking any of her regular medications with the exception of the antibiotic. I am currently hydrating her and giving her 10 units of regular insulin subcutaneously. The CT scan of the face reveals a 2.6 cm abscess. I will make arrangements for transfer to a center with maxillofacial surgery available. She also has an elevated troponin here and will require cardiology services. 09/30/2024, 7:15 a.m.: I have initiated transfer to a higher level of care (a center with maxillofacial surgery and cardiology services). 09/30/2024, 3:39 p.m.: Patient has been accepted for transfer to [facility] by the emergency physician Dr. Salcedo. Departure Impression: Primary Impression: Facial abscess Condition: Guarded Referrals: NO PRIMARY CARE PROVIDER (PCP) Education Educated: Patient Educated regarding: diagnosis, treatment Signature Scribe Signature: No scribe Attestation: No scribe ANALI ARROYO MD Sep 30, 2024 05:43 KYLEIGH HAYES MD Sep 30, 2024 06:25
[2024-09-30 05:47] LABS: ALBUMIN 3.2 G/DL (3.4-5.0); ANION GAP 11 (8-16); BLOOD UREA NITROGEN 9 MG/DL (7-18); BUN/CREATININE RATIO 11.7 (10.0-20.0); CALCIUM 9.2 MG/DL (8.5-10.1); CHLORIDE 102 MMOL/L (99-107); CREATININE 0.77 MG/DL (0.40-0.90); POTASSIUM 4.1 MMOL/L (3.5-5.1); PRO BRAIN NATRIURETIC PEPTIDE 434 PG/ML (0-125); SODIUM 137 MMOL/L (135-145); TOTAL CARBON DIOXIDE 24.1 MMOL/L (24-32); eCRCL 83 ML/MIN; eGFR 79 ML/MIN
[2024-09-30] MEDS: vancomycin/NS 1 GM ADD-VANTAGE 250 ML IV ONE (06:01)
[2024-09-30 06:03] LABS: MAGNESIUM 1.7 MG/DL (1.5-2.4)
[2024-09-30 06:11] LABS: GLUCOSE 440 MG/DL (70-104)
--- NOTE | 2024-09-30 06:56 | RADIOLOGY REPORT ---
EXAM: CT CT FACIAL BONES/SOFT TISSUE W/ IV CONTRAST HISTORY: abscess right face COMPARISON: None TECHNIQUE: Post IV contrast axial CT images of the facial bones were performed utilizing 100 ml omnip aque -300 IV contrast. Sagittal and coronal reformatted images were obtained. This CT exam was perfor med using one or more of the following dose reduction techniques: Automated exposure control, adjustm ent of the mA and/or kV according to patient size, or use of iterative reconstruction technique. Radiation Dose: CTDIvol 54.49 mGy, DLP 1283.73 mGy*cm. FINDINGS: There is a subcutaneous abscess in the right infraorbital region and right nasal bridge measuring 2.6 cm transverse (images 59-70, series 2). No evidence of facial bone fracture. There is mucosal thicke ariadna of the right ethmoid air cells. There is a small right maxillary sinus mucous retention cyst. T he nasal septum is deviated to the right. The bilateral OMC's are patent. No trixie bullosa. There i s a left Marycruz cell. There is a dental cavity involving the left mandibular 1st molar tooth. There i s holder tonsillar hypertrophy without significant airway narrowing or evidence of tonsillar abscess. Th ere is mild right cerebellar tonsillar ectopia without evidence of Chiari I malformation. There is m oderate cervical degenerative disc disease C4-C7 with [id number]-[id number] spinal canal stenosis at those levels; significant neural foraminal stenosis C4-C5 on the right. There are bilateral thyroid nodul es. IMPRESSION: 1. Subcutaneous abscess of the right infra orbital region extending to the nasal bridge and measuring up to 2.6 cm transverse. 2. No evidence of facial bone fracture. 3. Mild right maxillary and ethmoid sinus disease. 4. Dental cavity involving the left mandibular 1st molar tooth. Recommend outpatient dental consulta tion. 5. Pantonsillar hypertrophy without significant airway narrowing or evidence of tonsillar abscess. 6. Cervical degenerative disc disease with wafv-[id number] spinal canal stenosis disc level C4-C7 si gnificant neural foraminal stenosis on the right at C4-C5. Recommend follow-up outpatient noncontras t MRI of the cervical spine for better characterization, as there may be mass effect on the cervical spinal cord at multiple levels. 7. Bilateral thyroid nodules. Recommend follow-up outpatient thyroid ultrasound for better character ization.
[2024-09-30] MEDS: insulin regular, human 10 units/0.1 ml syringe SQ ONE ×2 (07:00→08:34)
[2024-09-30] MEDS: CEFEPIME 2gm in D5W 50mL 50 ML IV ONE (07:04)
[2024-09-30] MEDS: normal saline 1000ml 1,000 ML IV ONE (07:17)
[2024-09-30 08:55] LABS: URINE HCG NEGATIVE (NEG)
[2024-09-30 08:57] LABS: BILIRUBIN,URINE NEGATIVE (Neg); CLARITY,URINE CLEAR (Clear); COLOR,URINE YELLOW (Yellow); GLUCOSE, URINE >=1000 mg/dl (Neg); KETONES,URINE NEGATIVE (Neg); LEUKOCYTE ESTERASE ,URINE NEGATIVE (Neg); NITRITES, URINE NEGATIVE (Neg); OCCULT BLOOD,URINE NEGATIVE (Neg); PROTEIN,URINE NEGATIVE (Neg); UROBILINOGEN,URINE 0.2 E.U/dL (0.2-1.0)
[2024-09-30 09:08] LABS: UA COLLECTION TYPE CLN CATCH MIDSTREAM
[2024-09-30 09:16] LABS: BACTERIA,URINE NONE SEEN /HPF (Neg); MUCUS STRANDS NONE SEEN /LPF (Neg); RBC,URINE 0-2 /HPF (0-2); SQUAMOUS EPITHELIAL CELL,UR NONE SEEN /LPF (FEW); WBC,URINE 0-4 /HPF (0-4)
[2024-09-30] MEDS: normal saline 1000ml 1,000 ML IV SCH (12:10)
[2024-09-30 13:30] LABS: ANION GAP 8 (8-16); CHLORIDE 103 MMOL/L (99-107); GLUCOSE 334 MG/DL (70-104); POTASSIUM 4.1 MMOL/L (3.5-5.1); SODIUM 140 MMOL/L (135-145); TOTAL CARBON DIOXIDE 28.7 MMOL/L (24-32)
[2024-09-30 13:31] LABS: ALBUMIN 2.8 G/DL (3.4-5.0); BLOOD UREA NITROGEN 7 MG/DL (7-18); BUN/CREATININE RATIO 10.8 (10.0-20.0); CALCIUM 8.9 MG/DL (8.5-10.1); CREATININE 0.65 MG/DL (0.40-0.90); eCRCL 98 ML/MIN; eGFR > 90 ML/MIN
[2024-09-30] MEDS: HYDROmorphone inj. 0.5 MG/0.5 ML DISP.SYRIN IV PRN (15:04)
[2024-09-30 16:36] VITALS: BP 125/72; PULSE 86; RESP 16; TEMP 98.2; O2SAT 98
--- NOTE | 2024-10-02 08:30 | RADIOLOGY REPORT ---
EXAM: DI CHEST,SINGLE VIEW HISTORY: CP COMPARISON: DI CHEST,SINGLE VIEW on DOS: 08/05/24, DI CHEST,SINGLE VIEW on DOS: 06/12/24, chest CT dated 06/13/2024 TECHNIQUE: Portable upright AP view of the chest was performed. FINDINGS: No pneumothorax, consolidative infiltrates, or pulmonary edema. The heart is not enlarged. There are postoperative changes of median sternotomy. IMPRESSION: Postoperative changes of the heart without evidence of acute intrathoracic process. SA
== END 2024-09-30 16:52 | disposition short-term general hospital (02) ==
LOC: ER 04:45
DX: L02.01 Cutaneous abscess of face (principal); R07.89 Other chest pain; R06.02 Shortness of breath; E11.9 Type 2 diabetes mellitus without complications; E78.5 Hyperlipidemia, unspecified; I10 Essential (primary) hypertension; I25.10 Atherosclerotic heart disease of native coronary artery without angina pectoris; Z86.73 Personal history of transient ischemic attack (TIA), and cerebral infarction without residual deficits; Z88.0 Allergy status to penicillin; Z88.5 Allergy status to narcotic agent; Z79.82 Long term (current) use of aspirin; Z88.8 Allergy status to other drugs, medicaments and biological substances; Z95.1 Presence of aortocoronary bypass graft
CPT/HCPCS: 36415; 70487; 71045; 80048; 81001; 81025; 82948; 83605; 83735; 83880; 84145; 84484; 85025; 86140; 87040; 93005; 96361; 96365; 96366; 96368; 96372; 96375; 99285; J0692; J1171; J1815; J3370; J7030; J7050; Q9967; A4358

== ENCOUNTER 2024-11-06 06:35 | Emergency (ER) | payer MEDICAID ==
[~2024-11-06] VITALS: Ht 170.2 cm; Wt 80.0 kg
[2024-11-06 06:36] VITALS: BP 113/82; PULSE 90; TEMP 98.2; O2SAT 99
[2024-11-06 06:48] VITALS: RESP 18
--- NOTE | 2024-11-06 06:50 | ELECTROCARDIOGRAPH REPORT ---
[facility] Test Date: 2024-11-06 Test Time: 06:47:42 Pat Name: CORNEL BROWN Department: EMERGENCY ROOM Patient ID: 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 Reading MD: Dr. David Mack Measurements Intervals [place] Rate: 84 P: 52 NV: 161 QRS: 38 QRSD: 87 T: 82 QT: 391 QTc: 463 Interpretive Statements Sinus rhythm Probable left atrial enlargement Nonspecific T abnrm, anterolateral leads Electronically Signed On 11-07-2024 18:21:[address] David Mack Please click the below link to view image of tracing.
[2024-11-06 07:16] LABS: MEAN PLATELET VOLUME 8.9 FL (7.4-10.4); RED CELL DISTRIBUTION WIDTH 17.1 % (11.5-14.5)
--- NOTE | 2024-11-06 07:19 | RADIOLOGY REPORT ---
EXAM: XR Chest, 1 View CLINICAL INDICATION: Pain TECHNIQUE: Frontal view of the chest. COMPARISON: No relevant prior studies available. FINDINGS: LUNGS AND PLEURAL SPACES: See below. HEART: Cardiomegaly with mild congestion. MEDIASTINUM: Unremarkable. Normal mediastinal contour. BONES/JOINTS: Unremarkable. No acute fracture. IMPRESSION: Cardiomegaly with mild congestion.
--- NOTE | 2024-11-06 07:24 | Physician Documentation ---
History of Present Illness ~ General Chief Complaint: General Stated Complaint: SHORT OF BREATH Time Seen by MD: 06:50 Source: patient, EMS, EMS notes reviewed Mode of Arrival: EMS Exam Limitations: no limitations History of Present Illness Initial Comments Chief Complaint: I do not feel right, difficulty walking, I feel unsteady" Caveat: None Independent Historians: Paramedics History of Present Illness: Patient is a 54-year-old woman brought in by paramedics from the street. Patient states that 30 minutes prior to her calling 911 that she was having difficulty walking to the point that she need to find a cane to walk. Patient has had increasing swelling of her lower extremities. Patient has not been taking her medications because they are too many to carry around. Patient was recently kicked out of the [facility]. Patient has multiple additional complaints such as shortness a breath. Patient denies any chest pain. Review of systems: All systems were reviewed and are negative except for what is indicated in the history of present illness. Past Medical History: Hypertension, hyperlipidemia, type 2 diabetes, coronary artery disease Past Surgical History: CABG x1 June 2024 (at [facility]). Social History: Daily alcohol use, denies meth or other drug use, CURRENTLY HOMELESS-USED TO STAY AT THE [facility] BUT GOT KICKED OUT FOR 30 DAYS Medications: Reviewed as documented Nursing Notes Allergies: Reviewed as documented in Nursing Notes Medication Reconciliation Allergies: Coded Allergies: Penicillins (Verified Allergy, Severe, HIVES, 11/06/24) >5 years, hives, no treatment, PEN-FAST 2 morphine (Verified Allergy, Intermediate, TURNED HER ARM BLUE, 11/06/24) Scheduled Aspirin (Aspirin EC), 1 TAB PO DAILY, (Reported) Atorvastatin Calcium (Atorvastatin Calcium), 1 TAB PO DAILY, (Reported) Carvedilol (Carvedilol), 1 TAB PO DAILY, (Reported) Clopidogrel Bisulfate (Clopidogrel), 1 TAB PO DAILY, (Reported) Dulaglutide (Trulicity), 0.75 MG SQ Q7D, (Reported) Empagliflozin (Jardiance), 1 TAB PO DAILY, (Reported) Furosemide (Furosemide), 1 TAB PO DAILY, (Reported) Lisinopril (Lisinopril), 1 TAB PO DAILY, (Reported) Ondansetron Hcl (Zofran), 1 TAB PO Q6H Sitagliptin Phosphate* (Januvia*), 1 TAB PO DAILY, (Reported) Spironolactone (Spironolactone), 0.5 TAB PO DAILY, (Reported) Scheduled PRN Albuterol Sulfate/Budesonide (Airsupra 90-80 Mcg Inhaler), 2 PUFF PO Q4H PRN for SOB or wheezing, (Reported) Miscellaneous Medications Insulin Glargine,Hum.rec.anlog* (Lantus*), Unknown Dose SQ, (Reported) Past Medical History Past Medical History: CVA/TIA/Stroke Past Surgical History: noncontributory Alcohol Use: Rarely Drug Use: none Lives In: Home Occupation: employed Review of Systems All Other Systems at this time: Reviewed and Negative ROS Patient denies any other acute symptoms other than above. All other systems are negative Physical Exam Physical Exam Vital Signs: RN Vital Signs have been reviewed: Yes, Temperature: 98.2, Source: Oral, Heart Rate: 90, Respiratory Rate: 18, BP: 113/82, Pulse Oximetry: 99, Weight: 80.000 Oxygen Flow Rate: 0 Pulse Oximetry Reflects: adequate oxygenation Physical Exam General Appearance: No distress HEENT: Normal OP, moist oral mucosa, PERRL, EOMI Neck: supple, normal ROM, trachea midline Pulmonary: No respiratory distress, CTA, BS equal Cardiac: RRR, no murmur, rub or gallop, GI: nondistended, soft, nontender, normal bowel sounds, no guarding, no rebound Extremities: 2+ PITTING LOWER EXTREMITY EDEMA. RIGHT LOWER EXTREMITY IS LITTLE MORE SWOLLEN THAN THE LEFT Skin: intact, dry, warm, no rashes Neuro: AAOx3, speech is clear, no focal motor weakness Psych: normal affect, good eye contact, no apparent hallucination, normal speech Progress Results/Orders Results/Orders Orders - ANALI ARROYO MD Chest,Single View (11/06/24 06:40) Monitor (11/06/24 06:40) Saline Lock (11/06/24 06:40) Oxygen (11/06/24 06:40) Hs Troponin I W Calculations (11/06/24 08:40) Hs Troponin I W Calculations (11/06/24 09:40) Completed Orders - ANALI ARROYO MD Chest,Single View (11/06/24 06:40) Cbc/Diff (11/06/24 06:40) BMP (11/06/24 06:40) PBNP (11/06/24 06:40) Electrocardiogram (11/06/24 06:40) Hs Troponin I W Calculations (11/06/24 06:40) Hcg, Ur Ql (11/06/24 06:40) Lipase (11/06/24 06:40) Ua W/Microscopic, Cult If Ind (11/06/24 07:52) Vital Signs 11/06/24 11/06/24 06:36 06:48 Temp 98.2 Pulse 90 Resp 18 18 B/P (MAP) 113/82 Pulse Ox 99 O2 Flow Rate 0 Laboratory Tests Test 11/06/24 06:58 11/06/24 07:52 White Blood Count 5.1 Red Blood Count 4.52 Hemoglobin 11.9 L Hematocrit 36.4 Mean Corpuscular Volume 80.5 Mean Corpuscular Hemoglobin 26.3 L Mean Corpuscular Hemoglobin Concent 32.7 L Red Cell Distribution Width 17.1 H Platelet Count 211 Mean Platelet Volume 8.9 Neutrophils (%) (Auto) 56.0 Lymphocytes (%) (Auto) 34.6 Monocytes (%) (Auto) 6.0 Eosinophils (%) (Auto) 2.3 Basophils (%) (Auto) 1.1 H Neutrophils # (Auto) 2.9 Lymphocytes # (Auto) 1.8 Monocytes # (Auto) 0.3 Eosinophils # (Auto) 0.1 Basophils # (Auto) 0.1 CBC Comment Sodium Level 136 Potassium Level 3.8 Chloride Level 101 Carbon Dioxide Level 26.3 Anion Gap 9 Blood Urea Nitrogen 7 Creatinine 0.71 Estimated GFR/1.73 m2 86 BUN/Creatinine Ratio 9.9 L Glucose Level 316 H Calcium Level 9.1 Troponin I High Sensitivity 59 *H Pro-B-Type Natriuretic Peptide 72 Albumin 3.5 Lipase 29 Chemistry Comments Urine Specimen Description Cln catch midstream Urine Color Yellow Urine Clarity Clear Urine pH 6.0 Urine Specific [place] 1.015 Urine Protein Negative Urine Glucose (UA) >=1000 H Urine Ketones Negative Urine Occult Blood Trace-intact Urine Nitrite Negative Urine Bilirubin Negative Urine Urobilinogen 0.2 Urine Leukocyte Esterase Negative Urine RBC 0-2 Urine WBC 0-4 Urine Squamous Epithelial Cells Moderate Urine Bacteria Few Urine Yeast Few Urine Culture Indicated Not ind Volume Urine Centrifuged 10 ml Urine HCG, Qualitative Negative Urine Comment Medical Decision Making Findings Differential diagnosis includes but is not limited to: Coronary syndrome, peripheral edema, venous stasis, congestive heart failure, renal failure, electrolyte abnormalities EKG independent interpretation: Performed at 6:47 a.m.. Normal sinus rhythm, rate 84, normal axis, normal ST segments, left atrial enlargement Chest x-ray, single view, indication: SHORTNESS A BREATH Independent interpretation: Mild pulmonary vascular congestion, cardiomegaly, normal mediastinum Laboratory data independent interpretation: CBC: Unremarkable CMP: Significant for hyperglycemia with a serum glucose of 316 Troponin: 59 Pro BNP: 72 Urinalysis: Unremarkable Emergency department course/medical decision-making: Patient has been noncompliant with her medications. Patient presents with worsening peripheral edema and congestive heart failure. Patient is not requiring supplemental oxygen. Patient requires admission. Patient is refusing admission. Patient states that she needs to leave to take care of a meeting for housing needs. Patient states that she will come back in a couple of hours. Patient is going to be signed out against medical advice. Departure Time of Disposition: 08:50 Disposition: 07 LEFT AGAINST MEDICAL ADVICE Impression: Primary Impression: CHF (congestive heart failure) Qualified Codes: I50.9 - Heart failure, unspecified Additional Impressions: Peripheral edema Medical non-compliance Condition: Fair Discharge Instructions: Heart Failure, Diagnosis, Atmt-ft-[id number], Peripheral Edema Education Educated: Patient Educated regarding: diagnosis, treatment Signature Scribe Signature: NO SCRIBE Attestation: NO SCRIBE ANALI ARROYO MD Nov 06, 2024 07:24
[2024-11-06 07:37] LABS: CREATININE 0.71 MG/DL (0.40-0.90); PRO BRAIN NATRIURETIC PEPTIDE 72 PG/ML (0-125); TOTAL CARBON DIOXIDE 26.3 MMOL/L (24-32); eCRCL 90 ML/MIN; eGFR 86 ML/MIN
[2024-11-06 08:02] LABS: LEUKOCYTE ESTERASE ,URINE NEGATIVE (Neg); NITRITES, URINE NEGATIVE (Neg); OCCULT BLOOD,URINE TRACE-INTACT (Neg)
[2024-11-06 08:03] LABS: URINE HCG NEGATIVE (NEG)
[2024-11-06 08:12] LABS: UA COLLECTION TYPE CLN CATCH MIDSTREAM
[2024-11-06 08:15] LABS: SQUAMOUS EPITHELIAL CELL,UR MODERATE /LPF (FEW); YEAST FEW /HPF (NEGATIVE)
== END 2024-11-06 08:33 | disposition left against medical advice (07) ==
LOC: ER 06:36
DX: I11.0 Hypertensive heart disease with heart failure (principal); I50.9 Heart failure, unspecified; R60.0 Localized edema; I25.10 Atherosclerotic heart disease of native coronary artery without angina pectoris; E11.9 Type 2 diabetes mellitus without complications; E78.5 Hyperlipidemia, unspecified; Z88.0 Allergy status to penicillin; Z88.5 Allergy status to narcotic agent; Z95.1 Presence of aortocoronary bypass graft; Z86.73 Personal history of transient ischemic attack (TIA), and cerebral infarction without residual deficits; Z79.82 Long term (current) use of aspirin; Z79.899 Other long term (current) drug therapy; Z91.199 Patient's noncompliance with other medical treatment and regimen due to unspecified reason
CPT/HCPCS: 36415; 71045; 80048; 81001; 81025; 83690; 83880; 84484; 85025; 93005; 99285

== ENCOUNTER 2024-11-06 10:56 | Emergency (ER) | payer MEDICAID ==
[~2024-11-06] VITALS: Ht 170.2 cm; Wt 100.5 kg
[2024-11-06 11:12] VITALS: BP 160/79; PULSE 86; RESP 18; O2SAT 99
[2024-11-06 11:45] LABS: MEAN PLATELET VOLUME 8.4 FL (7.4-10.4); RED CELL DISTRIBUTION WIDTH 16.9 % (11.5-14.5)
[2024-11-06 12:08] LABS: CREATININE 0.49 MG/DL (0.40-0.90); PRO BRAIN NATRIURETIC PEPTIDE 88 PG/ML (0-125); TOTAL CARBON DIOXIDE 27.4 MMOL/L (24-32); eCRCL 131 ML/MIN; eGFR > 90 ML/MIN
--- NOTE | 2024-11-06 12:26 | RADIOLOGY REPORT ---
CHEST RADIOGRAPH Indication: CP Technique: Single frontal view of the chest was obtained Comparison: DI CHEST,SINGLE VIEW on DOS: 11/06/24, DI CHEST,SINGLE VIEW on DOS: 10/17/24, DI CHEST,SINGL E VIEW on DOS: 09/30/24, DI CHEST,SINGLE VIEW on DOS: 09/30/24, DI CHEST,SINGLE VIEW on DOS: 08/05/24 FINDINGS: Lines and Tubes: None Lungs: No focal consolidation. Pleura: No effusion. No pneumothorax. Cardiomediastinal contours: Unremarkable Bones: No acute osseous abnormality. IMPRESSION: No acute cardiopulmonary disease.
--- NOTE | 2024-11-06 12:29 | Physician Documentation ---
History of Present Illness ~ Chief Complaint: Medical Clearance Stated Complaint: MED CLEARANCE Time Seen by MD: 11:29 Primary Medical Doctor: Maggie Patino [facility] This 54-year-old female presents to the ED with a request to obtain medical clearance to go to [facility]. However, patient was here earlier this morning and evaluated for shortness of breath and had slightly elevated troponin before leaving AMA. Currently ,does not complain of any shortness of breath or chest pain. Tetanus within 5 years?: No (declined to answer) Medication Reconciliation Allergies: Coded Allergies: Penicillins (Verified Allergy, Severe, HIVES, 11/06/24) >5 years, hives, no treatment, PEN-FAST 2 morphine (Verified Allergy, Intermediate, TURNED HER ARM BLUE, 11/06/24) Scheduled Aspirin (Aspirin EC), 1 TAB PO DAILY, (Reported) Atorvastatin Calcium (Atorvastatin Calcium), 1 TAB PO DAILY, (Reported) Carvedilol (Carvedilol), 1 TAB PO DAILY, (Reported) Clopidogrel Bisulfate (Clopidogrel), 1 TAB PO DAILY, (Reported) Dulaglutide (Trulicity), 0.75 MG SQ Q7D, (Reported) Empagliflozin (Jardiance), 1 TAB PO DAILY, (Reported) Furosemide (Furosemide), 1 TAB PO DAILY, (Reported) Lisinopril (Lisinopril), 1 TAB PO DAILY, (Reported) Ondansetron Hcl (Zofran), 1 TAB PO Q6H Sitagliptin Phosphate* (Januvia*), 1 TAB PO DAILY, (Reported) Spironolactone (Spironolactone), 0.5 TAB PO DAILY, (Reported) Scheduled PRN Albuterol Sulfate/Budesonide (Airsupra 90-80 Mcg Inhaler), 2 PUFF PO Q4H PRN for SOB or wheezing, (Reported) Miscellaneous Medications Insulin Glargine,Hum.rec.anlog* (Lantus*), Unknown Dose SQ, (Reported) Past Medical History Past Medical History: CVA/TIA/Stroke Past Surgical History: noncontributory Smoking Status: Current some day smoker Alcohol Use: Rarely Drug Use: none Lives In: Home Occupation: employed Review of Systems All Other Systems at this time: Reviewed and Negative ROS As stated above in the HPI, otherwise all systems are reviewed and negative. Physical Exam Vital Signs: Temperature: 97.8, Source: Temporal, Heart Rate: 86, Respiratory Rate: 18, BP: 160/79, Pulse Oximetry: 99, Weight: 100.450 Physical Exam General: Alert, no apparent distress. Respiratory: Lungs clear, no respiratory distress. Chest: No accessory muscle use. Cardiovascular: Regular rate and rhythm, no murmurs. Progress Results/Orders Results/Orders Orders - KEVINSHIVANI H C SOFTWARE ENGINEER Chest,Single View (11/06/24 12:00) Monitor (11/06/24 11:32) Saline Lock (11/06/24 11:32) Oxygen (11/06/24 11:32) Completed Orders - SHIVANI BROWN H C SOFTWARE ENGINEER Cbc/Diff (11/06/24 11:17) BMP (11/06/24 11:17) Chest,Single View (11/06/24 12:00) PBNP (11/06/24 11:32) Hs Troponin I W Calculations (11/06/24 11:32) Vital Signs 11/06/24 11/06/24 11:12 12:40 Temp 97.8 97.8 Pulse 86 Resp 18 B/P (MAP) 160/79 Pulse Ox 99 Laboratory Tests Test 11/06/24 11:38 White Blood Count 4.9 Red Blood Count 4.63 Hemoglobin 12.3 Hematocrit 37.4 Mean Corpuscular Volume 80.8 Mean Corpuscular Hemoglobin 26.5 L Mean Corpuscular Hemoglobin Concent 32.8 L Red Cell Distribution Width 16.9 H Platelet Count 229 Mean Platelet Volume 8.4 Neutrophils (%) (Auto) 51.0 Lymphocytes (%) (Auto) 41.3 Monocytes (%) (Auto) 4.8 Eosinophils (%) (Auto) 2.0 Basophils (%) (Auto) 0.9 Neutrophils # (Auto) 2.5 Lymphocytes # (Auto) 2.0 Monocytes # (Auto) 0.2 Eosinophils # (Auto) 0.1 Basophils # (Auto) 0.0 CBC Comment Sodium Level 134 L Potassium Level 4.0 Chloride Level 101 Carbon Dioxide Level 27.4 Anion Gap 6 L Blood Urea Nitrogen 6 L Creatinine 0.49 Estimated GFR/1.73 m2 > 90 BUN/Creatinine Ratio 12.2 Glucose Level 231 H Calcium Level 9.3 Troponin I High Sensitivity 49 Troponin I High Sens Percent Delta 16 Troponin I Hi Sens Absolute Change -10 Pro-B-Type Natriuretic Peptide 88 Albumin 3.6 Chemistry Comments Medical Decision Making Findings Patient did not present with any signs of acute shortness for breath or chest pain based on her laboratory values. Patient remained asymptomatic throughout her stay in the ED. medically cleared her to go to [facility] for recovery Differential Dx:Considerations: Include: Intoxication-Alcohol, Intoxication- Other drug, Personality disorder, Substance abuse disorder, Acute delirium, Closed head injury, Cervical spine injury, Skull fracture, Fracture(s), Abrasion, Contusion, Foreign body, Hematoma, Laceration, Alcohol withdrawl syndrom, Encephalopathy, Hepatitis, Medically stable, Other Departure Disposition: HOME / SELF CARE / HOMELESS Impression: Primary Impression: General medical exam Condition: Stable Discharge Instructions: Medical Screening Exam Additional Instructions: Medically cleared for alcohol recovery Referrals: NO PRIMARY CARE PROVIDER (PCP) Education Educated: Patient Educated regarding: diagnosis Signature Scribe Signature: Attestation: Scribed for Shivani Brown Channel Development Manager by Shivani Vieyra NP . 11/06/24 18:12 SHIVANI BROWN NP Nov 06, 2024 12:29
[2024-11-06 12:40] VITALS: TEMP 97.8
== END 2024-11-06 12:41 | disposition home or self-care (01) ==
LOC: ER 10:56
DX: R06.02 Shortness of breath (principal); F17.200 Nicotine dependence, unspecified, uncomplicated; Z86.73 Personal history of transient ischemic attack (TIA), and cerebral infarction without residual deficits; Z88.0 Allergy status to penicillin; Z88.5 Allergy status to narcotic agent; Z79.82 Long term (current) use of aspirin; Z79.899 Other long term (current) drug therapy
CPT/HCPCS: 36415; 71045; 80048; 83880; 84484; 85025; 99284

== ENCOUNTER 2024-11-18 07:05 | Emergency (ER) | payer MEDICAID ==
[~2024-11-18] VITALS: Ht 170.2 cm; Wt 97.3 kg
[2024-11-18 07:16] VITALS: BP 133/89; PULSE 105; RESP 18; TEMP 97.3; O2SAT 98
[2024-11-18] MEDS ORDERED: CEPH250T PO (23:27)
== END 2024-11-18 09:17 | disposition left against medical advice (07) ==
LOC: ER 07:06
DX: Z53.21 Procedure and treatment not carried out due to patient leaving prior to being seen by health care provider (principal)

== ENCOUNTER 2024-11-18 18:05 | Emergency (ER) | payer MEDICAID ==
--- NOTE | 2024-11-18 23:20 | Physician Documentation ---
History of Present Illness ~ Chief Complaint: Headache Stated Complaint: MULTIPLE MEDICAL COMPLAINTS Time Seen by MD: 23:10 OK to notify your PCP?: Yes Primary Medical Doctor: Maggie Patino Source: patient, RN/, RN notes reviewed, old records Mode of Arrival: POV Exam Limitations: no limitations HPI BED 17 This patient is a 54 y/o female who presents to the ED with multiple complaints. Patient reports that she is having pain to her feet and has dry/cracked heels which she attributes to all the walking she has to do, as she is currently unhoused and it is her only way of getting around. She also states she had open heart surgery in Mach of this year, and is having some discharge from her post- surgical site. She states she has seen a doctor at the [facility] for this, and was recently seen at another hospital to have her bandages changed. Her next appointment with the [facility] is in 5 days. Patient also complaining of a headache with some sensitivity to light. Patient was seen here earlier today but did not receive a workup as she left before being seen. Patient denies any other associated symptoms at this time. Patient denies any other alleviating or exacerbating factors. Medication Reconciliation Allergies: Coded Allergies: Penicillins (Verified Allergy, Severe, HIVES, 11/18/24) >5 years, hives, no treatment, PEN-FAST 2 morphine (Verified Allergy, Intermediate, TURNED HER ARM BLUE, 11/18/24) Scheduled Aspirin (Aspirin EC), 1 TAB PO DAILY, (Reported) Atorvastatin Calcium (Atorvastatin Calcium), 1 TAB PO DAILY, (Reported) Carvedilol (Carvedilol), 1 TAB PO DAILY, (Reported) Cephalexin*Monohydrate* (Keflex*), 1 CAP PO BID Clopidogrel Bisulfate (Clopidogrel), 1 TAB PO DAILY, (Reported) Dulaglutide (Trulicity), 0.75 MG SQ Q7D, (Reported) Empagliflozin (Jardiance), 1 TAB PO DAILY, (Reported) Furosemide (Furosemide), 1 TAB PO DAILY, (Reported) Lisinopril (Lisinopril), 1 TAB PO DAILY, (Reported) Ondansetron Hcl (Zofran), 1 TAB PO Q6H Sitagliptin Phosphate* (Januvia*), 1 TAB PO DAILY, (Reported) Spironolactone (Spironolactone), 0.5 TAB PO DAILY, (Reported) Scheduled PRN Albuterol Sulfate/Budesonide (Airsupra 90-80 Mcg Inhaler), 2 PUFF PO Q4H PRN for SOB or wheezing, (Reported) Miscellaneous Medications Insulin Glargine,Hum.rec.anlog* (Lantus*), Unknown Dose SQ, (Reported) Past Medical History Past Medical History: CVA/TIA/Stroke Past Surgical History: noncontributory Smoking Status: Unknown if ever smoked Alcohol Use: Rarely Drug Use: none Lives In: Home Occupation: employed Review of Systems All Other Systems at this time: Reviewed and Negative Physical Exam Vital Signs: RN Vital Signs have been reviewed: Yes, Temperature: 98.0, Source: Temporal, Heart Rate: 68, Respiratory Rate: 16, BP: 158/62, Pulse Oximetry: 98 Physical Exam General: The patient is well developed, well nourished, nontoxic appearing and is in no acute distress. Skin: Patient has a midline surgical scar to her chest with some slight drainage, and superficial ulceration to the bottom of the wound. Skin is otherwise pink, warm and dry with no rashes. HEENT: Head was normocephalic and atraumatic. Eyes - pupils equal, round, reactive to light and accommodation. Extraocular movements were intact. Conjunctivae were nonicteric. The mouth and oropharynx were clear with moist mucous membranes. There were no pharyngeal exudates or erythema. Neck: Supple and nontender. There was no jugular venous distention, lymphadenopathy, thyromegaly or masses. Chest: (SEE SKIN) Clear to auscultation bilaterally without wheezes, rales or rhonchi. No accessory muscle use. No dullness to percussion. Heart: Rate regular and rhythmic. S1, S2. No murmurs. Palpation of the chest wall was normal. No rubs or thrills. Abdomen: Soft, nontender and nondistended. Positive bowel sounds. No guarding or rebound. No hepatosplenomegaly or palpable masses. Extremities: (SEE SKIN) No cyanosis, clubbing or edema. The patient moves all extremities. Pulses were equal and symmetric. Neurologic: Motor and sensation grossly intact. A & O x4. Psychologic: The patient was oriented to person, place and time. Progress Results/Orders Reviewed/noted all lab results: Yes Results/Orders Completed Orders - NANCY CORREA MD Cephalexin Capsule (Keflex Capsule) (11/18/24 23:30) Naproxen Tablet (Naprosyn Tablet) (11/18/24 23:30) Medications Received in ER Medications (Trade) Dose Ordered Sig/Alberto Route PRN Reason Start Time Stop Time Status Last Admin Dose Admin (Keflex capsule) 250 mg ONCE ONCE PO 11/18/24 23:30 11/18/24 23:31 DC 11/18/24 23:48 250 MG (Naprosyn tablet) 500 mg ONCE ONCE PO 11/18/24 23:30 11/18/24 23:36 DC 11/18/24 23:49 500 MG Vital Signs 11/18/24 11/18/24 11/19/24 18:41 21:43 00:11 Temp 96.3 98.0 98.6 Pulse 109 68 78 Resp 15 16 18 B/P (MAP) 161/65 158/62 (94) 155/60 Pulse Ox 98 98 99 Re-Evaluation Re-Evaluation : Re-Evaluation: Improved Progress Patient had multiple medical complaints. Some of MR psychiatric. Chronic foot pain chronic back pain chronic headache. Patient was given reassurance vital signs are within normal limits. Patient received naproxen. She is on Plavix so no prescription was prescribed. She also received a Band-Aid she had some wound dehiscence on the chest wall started on antibiotics. She is being followed by wound care. Patient was then discharged home medically cleared for a residential program. Medical Decision Making Additional info obtained from: old records Differential Dx:Considerations: Include: KUMAR-Cluster, KUMAR-Migraine, Sinusitis, Other Departure Time of Disposition: 23:26 Disposition: 01 HOME / SELF CARE / HOMELESS Impression: Primary Impression: Foot pain Qualified Codes: M79.671 - Pain in right foot; M79.672 - Pain in left foot Additional Impression: Headache Qualified Codes: R51.9 - Headache, unspecified Condition: Stable Discharge Instructions: Headache Additional Instructions: PATIENT IS MEDICALLY CLEARED FOR [facility] Referrals: NO PRIMARY CARE PROVIDER (PCP) Prescriptions Cephalexin*Monohydrate* (Keflex*) 250 Mg Capsule 1 CAP PO BID for 7 Days, #14 CAP Prov: NANCY CORREA MD 11/18/24 Education Educated: Patient Educated regarding: diagnosis, treatment, need for follow up Signature Scribe Signature: Scribed for Nancy Correa MD by Nancy Correa MD . 11/18/24 23:27 Attestation: The note accurately reflects work and decisions made by me.Nancy Correa MD 11/18/24 23:20 NANCY CORREA MD Nov 18, 2024 23:20
[2024-11-18] MEDS ORDERED: CEPH250T PO (23:27)
[2024-11-19 00:11] VITALS: BP 155/60; PULSE 78; RESP 18; TEMP 98.6; O2SAT 99
== END 2024-11-19 00:12 | disposition home or self-care (01) ==
LOC: ER 18:05
DX: M79.671 Pain in right foot (principal); M79.672 Pain in left foot; R51.9 Headache, unspecified; Z86.73 Personal history of transient ischemic attack (TIA), and cerebral infarction without residual deficits; Z88.0 Allergy status to penicillin; Z88.5 Allergy status to narcotic agent; Z88.8 Allergy status to other drugs, medicaments and biological substances
CPT/HCPCS: 99283